=== PATIENT | male | born 1935 | race Caucasian/White ===

== ENCOUNTER 2017-08-07 06:24 | Emergency (ER) | payer OTHER ==
[~2017-08-07] VITALS: Ht 182.9 cm; Wt 90.7 kg
[~2017-08-07 06:24] MED LIST: ASPI81CH PO; BISA5EC PO; HYDACE5 PO; Kristalose20 GM PO; LEVFLO500 PO; MAGCIT300 PO; Miralax17 GM PO; NAPR550 PO; PSEHYDGUAL PO; SIMV10 PO
[2017-08-07] MEDS ORDERED: Augmentin 875-1 EACH PO (07:46)
== END 2017-08-07 08:23 | disposition home or self-care (01) ==
LOC: ER 06:24
DX: S51.852A Open bite of left forearm, initial encounter (principal); Z23 Encounter for immunization; E78.00 Pure hypercholesterolemia, unspecified; Z79.82 Long term (current) use of aspirin; Z79.899 Other long term (current) drug therapy; W55.01XA Bitten by cat, initial encounter
CPT/HCPCS: 12001; 90471; 90714; 99283

== ENCOUNTER 2019-11-22 18:47 | Inpatient (IN) | payer OTHER ==
[~2019-11-22] VITALS: Ht 182.9 cm; Wt 86.0 kg
[~2019-11-22 18:47] MED LIST changes: +Augmentin 875-1 EACH PO
[2019-11-22 19:16] LABS: BASOPHILS ABSOLUTE AUTO 0.05 K/mm3 (0.00-0.23); BASOPHILS PERCENT AUTO 1 % (0-2); EOSINOPHILS ABSOLUTE AUTO 0.25 K/mm3 (0.00-0.68); EOSINOPHILS PERCENT AUTO 3 % (0-6); Hematocrit 44.5 % (37.0-53.0); Hemoglobin 14.2 g/dL (13.5-17.5); IMMATURE GRAN ABSOLUTE AUTO 0.02 K/mm3 (0.00-0.10); IMMATURE GRAN PERCENT AUTO 0 % (0-1); LYMPHOCYTES PERCENT AUTO 20 % (21-46); MONOCYTES ABSOLUTE AUTO 0.54 K/mm3 (0.16-1.47); MONOCYTES PERCENT AUTO 6 % (4-13); Mean Corpuscular HGB 29.8 pg (26.0-34.0); Mean Corpuscular HGB Conc 31.9 g/dL (31.5-36.5); Mean Corpuscular Volume 94 fL (80-100); Mean Platelet Volume 10.3 fL (9.1-12.4); NEUTROPHILS ABSOLUTE AUTO 5.84 K/mm3 (1.96-9.15); NEUTROPHILS PERCENT AUTO 70 % (41-73); Platelet Count 219 K/mm3 (150-400); RDW Coefficient Variation 12.2 % (11.7-14.2); RDW Standard Deviation 42.4 fL (35.1-46.3); Red Blood Cell Count 4.76 M/mm3 (4.30-5.90)
[2019-11-22 19:43] LABS: Alanine Aminotransfer (ALT/SGP 28 U/L (12-78); Albumin, Blood 3.6 g/dL (3.4-5.0); Albumin/Globulin Ratio 1.1 (0.8-1.8); Alk Phos 82 U/L (50-136); Anion Gap 4 mmol/L (6-16); Aspartate Aminotrans (AST/SGOT 20 U/L (12-37); Bilirubin, Total 0.6 mg/dL (0.1-1.0); Blood Urea Nitrogen 23 mg/dL (8-24); Bun/Creatinine Ratio 18.3 (12.0-20.0); CO2, Blood 27 mmol/L (21-32); Calcium, Blood 8.9 mg/dL (8.5-10.1); Chloride, Blood 112 mmol/L (98-108); Creatinine, Blood 1.26 mg/dL (0.60-1.20); Globulin, Blood 3.4 g/dL (2.2-4.0); Glomerular Filtration Rate 58 (60-); Glucose, Blood 127 mg/dL (70-99); Sodium, Blood 143 mmol/L (136-145); Troponin I <0.015 ng/mL (0.000-0.040)
[2019-11-23] LABS: Lactate Dehydrogenase (Ld),Bld 243 U/L (100-240)
[2019-11-23 00:12] LABS: Automated BF WBC Count 0.062 K/mm3 (0-999); Body Fluid WBC Count 62 /mm3 (0-999)
[2019-11-23 00:17] LABS: Amylase, Body Fluid 35 U/L; Lactate Dehydrogenase, Body Fl 129 U/L; Protein, Body Fluid 3.9 g/dL
[2019-11-23 00:30] LABS: Appearance, Body Fluid Clear (Clear); Color, Body Fluid Yellow (None-Yellow); RBC Count, Body Fluid 1184 /mm3 (0-0)
[2019-11-23 00:35] LABS: Total Cell Count, Body Fluid 100
[2019-11-23] MEDS ORDERED: METO50ER PO (01:35)
[2019-11-23] MEDS ORDERED: Flecainide Acet50 MG PO (01:36)
--- NOTE | 2019-11-23 05:15 | NUR ---
WHITE WASHER PILER SUMMARY PT HAS HAD NO C/P OF SOB DURING THE NIGHT. PT O2 SATURATIONS IN THE LOW 90'S ON ROOM AIR W CONTINUOUS BI OX IN PLACE. 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 NO NEW S/S. AXO X4 PLEASANT AND COOPERATIVE.
[2019-11-23 05:36] LABS: BASOPHILS ABSOLUTE AUTO 0.05 K/mm3 (0.00-0.23); BASOPHILS PERCENT AUTO 0 % (0-2); EOSINOPHILS ABSOLUTE AUTO 0.09 K/mm3 (0.00-0.68); EOSINOPHILS PERCENT AUTO 1 % (0-6); Hematocrit 42.6 % (37.0-53.0); Hemoglobin 13.4 g/dL (13.5-17.5); IMMATURE GRAN ABSOLUTE AUTO 0.03 K/mm3 (0.00-0.10); IMMATURE GRAN PERCENT AUTO 0 % (0-1); LYMPHOCYTES ABSOLUTE AUTO 1.41 K/mm3 (0.84-5.20); LYMPHOCYTES PERCENT AUTO 12 % (21-46); MONOCYTES ABSOLUTE AUTO 0.69 K/mm3 (0.16-1.47); MONOCYTES PERCENT AUTO 6 % (4-13); Mean Corpuscular HGB 29.8 pg (26.0-34.0); Mean Corpuscular HGB Conc 31.5 g/dL (31.5-36.5); Mean Corpuscular Volume 95 fL (80-100); Mean Platelet Volume 10.5 fL (9.1-12.4); NEUTROPHILS ABSOLUTE AUTO 9.76 K/mm3 (1.96-9.15); NEUTROPHILS PERCENT AUTO 81 % (41-73); Platelet Count 204 K/mm3 (150-400); RDW Coefficient Variation 12.3 % (11.7-14.2); RDW Standard Deviation 42.9 fL (35.1-46.3); White Blood Cell Count 12.03 K/mm3 (4.00-11.30)
[2019-11-23 05:47] LABS: Anion Gap 3 mmol/L (6-16); Blood Urea Nitrogen 23 mg/dL (8-24); Bun/Creatinine Ratio 19.5 (12.0-20.0); CO2, Blood 28 mmol/L (21-32); Calcium, Blood 8.5 mg/dL (8.5-10.1); Chloride, Blood 110 mmol/L (98-108); Creatinine, Blood 1.18 mg/dL (0.60-1.20); Glomerular Filtration Rate >60 (60-); Glucose, Blood 99 mg/dL (70-99); Lactate Dehydrogenase (Ld),Bld 186 U/L (100-240); Potassium, Blood 4.5 mmol/L (3.5-5.5); Sodium, Blood 141 mmol/L (136-145)
--- NOTE | 2019-11-24 06:38 | NUR ---
11/24/19 0600 PT SLEPT WELL LAST NIGHT. DENIED ANY DISCOMFORT OR OTHER S/S. VITALS STABLE. UP TO VOID PRN. RN ENCOURAGED ORAL INTAKE BUT PT ONLY WOULD TAKE SIPS AT A TIME. PT ON ROOM AIR AND DENIES ANY SOB THIS SHIFT.
[2019-11-24 08:25] LABS: BASOPHILS ABSOLUTE AUTO 0.06 K/mm3 (0.00-0.23); BASOPHILS PERCENT AUTO 1 % (0-2); EOSINOPHILS ABSOLUTE AUTO 0.28 K/mm3 (0.00-0.68); EOSINOPHILS PERCENT AUTO 4 % (0-6); Hematocrit 41.4 % (37.0-53.0); Hemoglobin 13.2 g/dL (13.5-17.5); IMMATURE GRAN ABSOLUTE AUTO 0.02 K/mm3 (0.00-0.10); IMMATURE GRAN PERCENT AUTO 0 % (0-1); LYMPHOCYTES ABSOLUTE AUTO 1.25 K/mm3 (0.84-5.20); LYMPHOCYTES PERCENT AUTO 16 % (21-46); MONOCYTES PERCENT AUTO 8 % (4-13); Mean Corpuscular HGB 30.1 pg (26.0-34.0); Mean Corpuscular HGB Conc 31.9 g/dL (31.5-36.5); Mean Corpuscular Volume 94 fL (80-100); Mean Platelet Volume 10.7 fL (9.1-12.4); NEUTROPHILS ABSOLUTE AUTO 5.77 K/mm3 (1.96-9.15); NEUTROPHILS PERCENT AUTO 72 % (41-73); Platelet Count 179 K/mm3 (150-400); RDW Coefficient Variation 12.3 % (11.7-14.2); RDW Standard Deviation 42.8 fL (35.1-46.3); Red Blood Cell Count 4.39 M/mm3 (4.30-5.90); White Blood Cell Count 7.98 K/mm3 (4.00-11.30)
--- NOTE | 2019-11-24 13:21 | NUR ---
Echocardiogram performed.
--- NOTE | 2019-11-24 17:58 | NUR ---
SHIFT SUMMARY ECHOCARDIOGRAM COMPLETED, CONTINUOS SPO2 IN PLACE. NO EPISODES OF DESATURATION. PATIENT WALKED ENTIRETY OF UNIT X2. NO COMPLAINTS. PER PULMONOGY, NOT ANTICIPATING A NEED FOR SECOND THORACENTESIS. CULTURES PENDING.
--- NOTE | 2019-11-25 00:47 | NUR ---
RECEIVED REPORT FROM JONATAN WALDROP. ASSUMED CARE OF PT.
--- NOTE | 2019-11-25 02:01 | NUR ---
SALINE LOCKED PT. PT UP TO BR INDEPENDENTLY. NO OTHER NEEDS. CALL LT IN REACH.
--- NOTE | 2019-11-25 04:24 | NUR ---
SHIFT SUMMARY: PT RESTED WELL. NO COMPLAINTS. AMBULATES INDEPENDENTLY. A/O. ABLE TO STATE NEEDS APPROPRIATELY. NO ACUTE CHANGES. POSSIBLE DISCHARGE TODAY. WILL CONTINUE TO MONITOR AND PROVIDE CARE UNTIL SHIFT REPORT.
--- NOTE | 2019-11-25 12:46 | NUR ---
DISCHARGE VERBALIZED UNDERSTANDIG OF THE DISCHARGE INSTRUCTIONS, MEDICATIONS AND FOLLOW-UPS, AND ALL QUESTIONS ANSWERED. SON, YAJAIRA, PRESENT FOR DISCHARGE EDUCATION. PATIENT WAS FREE OF S/SX OF RESPIRATORY DISTRESS, HEART MURMUR STILL PRESENT. SATURATIONS >90% ON RA, NO COUGH. LUNG SOUNDS DIMINISHED IN THE BASES, BUT PT HAD NO RESPIRATORY COMPLAINTS. PATIENT HAD ALL OF PERSONAL BELONGINGS IN HIS POSESSION AT TIME OF DISCHARGE. RX'S SENT TO [facility], PER PATIENT REQUEST.
== END 2019-11-25 11:52 | disposition home or self-care (01) | DRG 306 ==
LOC: ER 18:47 → MEDS 11-23 00:34 → ENPENDDIS 11-25 09:58 → MEDS 11-25 11:52
PROVIDERS: Emergency Medicine; Family Medicine; Nurse Practitioner Acute Care; Physician Assistant; ADMIT Internal Medicine
PROC: 0W9930Z Drainage of Right Pleural Cavity with Drainage Device, Percutaneous Approach (ICD-10-PCS; principal; 2019-11-23)
PROC: 3E02340 Introduction of Influenza Vaccine into Muscle, Percutaneous Approach (ICD-10-PCS; 2019-11-23)
DX: I34.0 Nonrheumatic mitral (valve) insufficiency (principal); J96.01 Acute respiratory failure with hypoxia; J91.8 Pleural effusion in other conditions classified elsewhere; N17.9 Acute kidney failure, unspecified; I47.1 Supraventricular tachycardia; Z20.828 Contact with and (suspected) exposure to other viral communicable diseases; J40 Bronchitis, not specified as acute or chronic; E78.00 Pure hypercholesterolemia, unspecified; D64.9 Anemia, unspecified; H91.90 Unspecified hearing loss, unspecified ear; Z77.090 Contact with and (suspected) exposure to asbestos; Z77.22 Contact with and (suspected) exposure to environmental tobacco smoke (acute) (chronic); Z23 Encounter for immunization; Z85.46 Personal history of malignant neoplasm of prostate; Z79.899 Other long term (current) drug therapy; Z79.82 Long term (current) use of aspirin
CPT/HCPCS: 32554; 36415; 71046; 71260; 74160; 80048; 80053; 82150; 82947; 83615; 83880; 84145; 84157; 84484; 85025; 87070; 87205; 88108; 89051; 93005; 93010; 93306; 99285-25; A9270-GY; J0696; J1650; J7030; J7050; Q2038; Q9967; U0003

== ENCOUNTER 2019-12-07 07:37 | Emergency (ER) | payer OTHER ==
[~2019-12-07] VITALS: Ht 182.9 cm; Wt 88.5 kg
[~2019-12-07 07:37] MED LIST changes: +Flecainide Acet50 MG PO; +METO50ER PO
[2019-12-07 09:24] LABS: BASOPHILS ABSOLUTE AUTO 0.06 K/mm3 (0.00-0.23); BASOPHILS PERCENT AUTO 1 % (0-2); EOSINOPHILS ABSOLUTE AUTO 0.17 K/mm3 (0.00-0.68); EOSINOPHILS PERCENT AUTO 2 % (0-6); Hematocrit 40.2 % (37.0-53.0); Hemoglobin 12.9 g/dL (13.5-17.5); IMMATURE GRAN ABSOLUTE AUTO 0.02 K/mm3 (0.00-0.10); IMMATURE GRAN PERCENT AUTO 0 % (0-1); LYMPHOCYTES ABSOLUTE AUTO 0.94 K/mm3 (0.84-5.20); LYMPHOCYTES PERCENT AUTO 12 % (21-46); MONOCYTES ABSOLUTE AUTO 0.41 K/mm3 (0.16-1.47); MONOCYTES PERCENT AUTO 5 % (4-13); Mean Corpuscular HGB 30.1 pg (26.0-34.0); Mean Corpuscular HGB Conc 32.1 g/dL (31.5-36.5); Mean Corpuscular Volume 94 fL (80-100); Mean Platelet Volume 9.8 fL (9.1-12.4); NEUTROPHILS ABSOLUTE AUTO 6.18 K/mm3 (1.96-9.15); NEUTROPHILS PERCENT AUTO 79 % (41-73); Platelet Count 231 K/mm3 (150-400); RDW Coefficient Variation 12.2 % (11.7-14.2); RDW Standard Deviation 41.7 fL (35.1-46.3); Red Blood Cell Count 4.29 M/mm3 (4.30-5.90); White Blood Cell Count 7.78 K/mm3 (4.00-11.30)
[2019-12-07 09:39] LABS: International Normalized Ratio 0.99; Prothrombin Time Results 10.6 Sec (9.7-11.5)
== END 2019-12-07 10:00 | disposition home or self-care (01) ==
LOC: ER 07:37
PROVIDERS: Emergency Medicine
DX: J90 Pleural effusion, not elsewhere classified (principal); I34.0 Nonrheumatic mitral (valve) insufficiency; E78.00 Pure hypercholesterolemia, unspecified; Z79.899 Other long term (current) drug therapy
CPT/HCPCS: 36415; 71045; 85025; 85610; 85730; 99283-25

== ENCOUNTER 2019-12-11 00:47 | Observation (INO) | payer OTHER ==
[~2019-12-11] VITALS: Ht 182.9 cm; Wt 88.7 kg
[~2019-12-11 00:47] MED LIST changes: -SIMV10 PO; +SIMV40 PO
[2019-12-11 02:57] LABS: BASOPHILS ABSOLUTE AUTO 0.07 K/mm3 (0.00-0.23); BASOPHILS PERCENT AUTO 1 % (0-2); EOSINOPHILS ABSOLUTE AUTO 0.32 K/mm3 (0.00-0.68); EOSINOPHILS PERCENT AUTO 4 % (0-6); Hematocrit 39.7 % (37.0-53.0); Hemoglobin 12.6 g/dL (13.5-17.5); IMMATURE GRAN ABSOLUTE AUTO 0.02 K/mm3 (0.00-0.10); IMMATURE GRAN PERCENT AUTO 0 % (0-1); LYMPHOCYTES ABSOLUTE AUTO 1.04 K/mm3 (0.84-5.20); LYMPHOCYTES PERCENT AUTO 14 % (21-46); MONOCYTES ABSOLUTE AUTO 0.51 K/mm3 (0.16-1.47); MONOCYTES PERCENT AUTO 7 % (4-13); Mean Corpuscular HGB 29.8 pg (26.0-34.0); Mean Corpuscular HGB Conc 31.7 g/dL (31.5-36.5); Mean Corpuscular Volume 94 fL (80-100); Mean Platelet Volume 10.1 fL (9.1-12.4); NEUTROPHILS ABSOLUTE AUTO 5.56 K/mm3 (1.96-9.15); NEUTROPHILS PERCENT AUTO 74 % (41-73); Platelet Count 245 K/mm3 (150-400); RDW Coefficient Variation 12.2 % (11.7-14.2); RDW Standard Deviation 42.5 fL (35.1-46.3); Red Blood Cell Count 4.23 M/mm3 (4.30-5.90); White Blood Cell Count 7.52 K/mm3 (4.00-11.30)
[2019-12-11 03:12] LABS: International Normalized Ratio 0.96; Prothrombin Time Results 10.3 Sec (9.7-11.5)
[2019-12-11 03:15] LABS: Alanine Aminotransfer (ALT/SGP 16 U/L (12-78); Albumin/Globulin Ratio 0.9 (0.8-1.8); Alk Phos 86 U/L (50-136); Anion Gap 6 mmol/L (6-16); Aspartate Aminotrans (AST/SGOT 10 U/L (12-37); Bilirubin, Total 0.3 mg/dL (0.1-1.0); Blood Urea Nitrogen 23 mg/dL (8-24); Bun/Creatinine Ratio 19.2 (12.0-20.0); CO2, Blood 26 mmol/L (21-32); Calcium, Blood 8.2 mg/dL (8.5-10.1); Chloride, Blood 109 mmol/L (98-108); Globulin, Blood 3.2 g/dL (2.2-4.0); Glomerular Filtration Rate >60 (60-); Glucose, Blood 117 mg/dL (70-99); Sodium, Blood 141 mmol/L (136-145); Total Protein, Blood 6.2 g/dL (6.4-8.2); Troponin I <0.015 ng/mL (0.000-0.040)
[2019-12-11] MEDS ORDERED: Flecainide Acet50 MG PO (03:42)
--- NOTE | 2019-12-11 04:34 | NUR ---
PT ARRIVED TO THE ROOM FROM ER VIA WHEELCHAIR IN STABLE CONDITION. PT REPORTS SOB THAT INCREASES WITH EXERTION, BUT STATES IT IS A LITTLE BETTER NOW THAN WHEN HE FIRST CAME IN TO THE ER. ON RA AT 93%. NO OTHER APPARENT SIGNS OF DISTRESS. CALL LIGHT IS IN REACH.
--- NOTE | 2019-12-11 05:25 | NUR ---
PT LYING IN BED, EYES CLOSED, APPEARS TO BE RESTING. BREATHING IS EVEN, UNLABORED. NO APPARENT SIGNS OF DISTRESS. CALL LIGHT IS IN REACH.NO OTHER CHANGES THIS SHIFT.
[2019-12-11 05:33] LABS: BASOPHILS ABSOLUTE AUTO 0.07 K/mm3 (0.00-0.23); BASOPHILS PERCENT AUTO 1 % (0-2); EOSINOPHILS ABSOLUTE AUTO 0.37 K/mm3 (0.00-0.68); EOSINOPHILS PERCENT AUTO 5 % (0-6); Hematocrit 40.6 % (37.0-53.0); Hemoglobin 12.7 g/dL (13.5-17.5); IMMATURE GRAN ABSOLUTE AUTO 0.02 K/mm3 (0.00-0.10); IMMATURE GRAN PERCENT AUTO 0 % (0-1); LYMPHOCYTES ABSOLUTE AUTO 1.32 K/mm3 (0.84-5.20); LYMPHOCYTES PERCENT AUTO 16 % (21-46); MONOCYTES ABSOLUTE AUTO 0.54 K/mm3 (0.16-1.47); MONOCYTES PERCENT AUTO 7 % (4-13); Mean Corpuscular HGB 29.5 pg (26.0-34.0); Mean Corpuscular HGB Conc 31.3 g/dL (31.5-36.5); Mean Corpuscular Volume 94 fL (80-100); Mean Platelet Volume 10.2 fL (9.1-12.4); NEUTROPHILS PERCENT AUTO 72 % (41-73); Platelet Count 248 K/mm3 (150-400); RDW Coefficient Variation 12.4 % (11.7-14.2); RDW Standard Deviation 42.7 fL (35.1-46.3); White Blood Cell Count 8.22 K/mm3 (4.00-11.30)
[2019-12-11 05:54] LABS: Alanine Aminotransfer (ALT/SGP 17 U/L (12-78); Albumin, Blood 3.1 g/dL (3.4-5.0); Albumin/Globulin Ratio 0.9 (0.8-1.8); Alk Phos 91 U/L (50-136); Anion Gap 5 mmol/L (6-16); Aspartate Aminotrans (AST/SGOT 13 U/L (12-37); Bilirubin, Total 0.5 mg/dL (0.1-1.0); Blood Urea Nitrogen 22 mg/dL (8-24); Bun/Creatinine Ratio 18.6 (12.0-20.0); CO2, Blood 26 mmol/L (21-32); Calcium, Blood 8.2 mg/dL (8.5-10.1); Chloride, Blood 108 mmol/L (98-108); Creatinine, Blood 1.18 mg/dL (0.60-1.20); Globulin, Blood 3.3 g/dL (2.2-4.0); Glomerular Filtration Rate >60 (60-); Glucose, Blood 114 mg/dL (70-99); Sodium, Blood 139 mmol/L (136-145); Total Protein, Blood 6.4 g/dL (6.4-8.2)
--- NOTE | 2019-12-11 16:41 | NUR ---
ALERT. ORIENTED. PLEASANT. RT MIDDLE AND LOWER LOBES LUNG WITH VERY DIM SOUNDS. UNLABORED RESPIRATIONS. TELE ON AND PER TECH HAS BEEN SR IN 60'S. HAS BEEN INDEPENDENT IN ROOM, STEADY GAIT. RADIOLOGY UNABLE TO GET PATIENT IN TODAY FOR THORACENTESIS. RELATIVES VISITING MOST OF SHIFT. WCTM
[2019-12-12 11:44] LABS: Albumin, Body Fluid 2.1 g/dL; Automated BF WBC Count 0.093 K/mm3 (0-999); Body Fluid WBC Count 93 /mm3 (0-999); Lactate Dehydrogenase, Body Fl 178 U/L; Protein, Body Fluid 3.4 g/dL; Triglycerides, Body Fluid 13 mg/dL
[2019-12-12 12:20] LABS: RBC Count, Body Fluid 620 /mm3 (0-0)
[2019-12-12 12:21] LABS: Appearance, Body Fluid Clear (Clear); Color, Body Fluid Yellow (None-Yellow)
[2019-12-12 12:24] LABS: Total Cell Count, Body Fluid 100
[2019-12-12] MEDS ORDERED: FURO20 PO (14:43)
--- NOTE | 2019-12-12 15:11 | NUR ---
Pt sitting in chair awaiting to be D/C from hospital. Pt is A&O and denies pain at this time. Pt denies dyspnea and anxiety. Pt reports breathing has significantly improved since thoracentesis. Engaged in brief discussion regarding advanced directives. 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 Educated on the importance of completing an AD and appointing a healthcare hobbies and crafts sales representative. Educated on each section to complete. Pt reports he will consider completing if one has not be completing already. Pt expresses appreciation of visit and reports no other concerns at this time. Bedside RN Brittney in to D/C Pt. Palliative Care will remain available.
--- NOTE | 2019-12-12 17:25 | NUR ---
DISCHARGE DISCHARGE INSTRUCTIONS, FOLLOW UP APPOINTMENTS AND MEDICATION LIST REVIEWED WITH PT. QUESTIONS/CONCERNS ANSWERED. PT VERBALLY INDICATED UNDERSTANDING OF ALL INSTRUCTIONS RECEIVED DISCHARGED VIA W/C WITH D/C VOLUNTEER
== END 2019-12-12 15:17 | disposition home or self-care (01) ==
LOC: ER 00:47 → MEDS 00:48 → ER 03:49 → MEDS 03:55 → ENPENDDIS 16:51 → MEDS 12-12 15:17
PROVIDERS: Emergency Medicine; ADMIT Internal Medicine
DX: J90 Pleural effusion, not elsewhere classified (principal); I34.0 Nonrheumatic mitral (valve) insufficiency; I12.9 Hypertensive chronic kidney disease with stage 1 through stage 4 chronic kidney disease, or unspecified chronic kidney disease; N18.30 Chronic kidney disease, stage 3 unspecified; E78.5 Hyperlipidemia, unspecified; I48.0 Paroxysmal atrial fibrillation; Z79.899 Other long term (current) drug therapy; Z85.46 Personal history of malignant neoplasm of prostate; Z20.828 Contact with and (suspected) exposure to other viral communicable diseases; Z23 Encounter for immunization
CPT/HCPCS: 32555; 36415; 71045; 71046; 80053; 82042; 83615; 83880; 84157; 84478; 84484; 85025; 85610; 85730; 87205; 88108; 89051; 93005; 93010; 99285-25; G0378; U0003

== ENCOUNTER 2019-12-13 06:03 | Day surgery (SDC) | payer OTHER ==
[~2019-12-13] VITALS: Ht 182.9 cm; Wt 87.0 kg
[~2019-12-13 06:03] MED LIST changes: +FURO20 PO
--- NOTE | 2019-12-13 07:43 | NUR ---
PT RESTING COMFORTABLY AFTER LELE PROCEDURE. DENIES NEEDS. VSS. PT TOLERATES PROCEDURE WELL. NADN. DR RODRIGUEZ SPOKE WITH PATIENTS SONYAJAIRA ON PHONE REGARDING PLAN OF CARE. CALL LIGHT WITHIN REACH.
--- NOTE | 2019-12-13 08:10 | NUR ---
PT GIVEN ADDITIONAL WARM BLANKET. REMAINS DROWSY, BUT ROUSES EASILY TO VERBAL STIMULI. VSS.
== END 2019-12-13 22:56 | disposition home or self-care (01) ==
LOC: MHTC 06:03
DX: I34.0 Nonrheumatic mitral (valve) insufficiency (principal); I48.0 Paroxysmal atrial fibrillation; E78.5 Hyperlipidemia, unspecified; Z79.899 Other long term (current) drug therapy; Z85.46 Personal history of malignant neoplasm of prostate; Z23 Encounter for immunization; Z51.5 Encounter for palliative care
CPT/HCPCS: 93312; 93325; 99152; 99153; J2250; J3010; J7030

== ENCOUNTER 2019-12-27 09:36 | Emergency (ER) | payer OTHER ==
[~2019-12-27] VITALS: Ht 185.4 cm; Wt 86.2 kg
[2019-12-27 10:10] LABS: BASOPHILS ABSOLUTE AUTO 0.06 K/mm3 (0.00-0.23); BASOPHILS PERCENT AUTO 1 % (0-2); EOSINOPHILS ABSOLUTE AUTO 0.26 K/mm3 (0.00-0.68); EOSINOPHILS PERCENT AUTO 3 % (0-6); Hematocrit 43.8 % (37.0-53.0); IMMATURE GRAN ABSOLUTE AUTO 0.03 K/mm3 (0.00-0.10); IMMATURE GRAN PERCENT AUTO 0 % (0-1); LYMPHOCYTES ABSOLUTE AUTO 1.62 K/mm3 (0.84-5.20); LYMPHOCYTES PERCENT AUTO 18 % (21-46); MONOCYTES ABSOLUTE AUTO 0.57 K/mm3 (0.16-1.47); MONOCYTES PERCENT AUTO 6 % (4-13); Mean Corpuscular Volume 94 fL (80-100); Mean Platelet Volume 10.1 fL (9.1-12.4); NEUTROPHILS ABSOLUTE AUTO 6.36 K/mm3 (1.96-9.15); NEUTROPHILS PERCENT AUTO 72 % (41-73); Platelet Count 247 K/mm3 (150-400); RDW Coefficient Variation 12.3 % (11.7-14.2); RDW Standard Deviation 42.5 fL (35.1-46.3); Red Blood Cell Count 4.66 M/mm3 (4.30-5.90)
[2019-12-27 10:27] LABS: Alanine Aminotransfer (ALT/SGP 13 U/L (12-78); Albumin, Blood 3.6 g/dL (3.4-5.0); Alk Phos 79 U/L (50-136); Anion Gap 5 mmol/L (6-16); Aspartate Aminotrans (AST/SGOT 15 U/L (12-37); Bilirubin, Total 0.7 mg/dL (0.1-1.0); Blood Urea Nitrogen 27 mg/dL (8-24); Bun/Creatinine Ratio 21.4 (12.0-20.0); CO2, Blood 28 mmol/L (21-32); Calcium, Blood 8.7 mg/dL (8.5-10.1); Chloride, Blood 108 mmol/L (98-108); Creatinine, Blood 1.26 mg/dL (0.60-1.20); Globulin, Blood 3.5 g/dL (2.2-4.0); Glomerular Filtration Rate 58 (60-); Glucose, Blood 103 mg/dL (70-99); Potassium, Blood 4.1 mmol/L (3.5-5.5); Sodium, Blood 141 mmol/L (136-145); Total Protein, Blood 7.1 g/dL (6.4-8.2); Troponin I <0.015 ng/mL (0.000-0.040)
[2019-12-27 11:14] LABS: International Normalized Ratio 0.98; Prothrombin Time Results 10.5 Sec (9.7-11.5)
[2019-12-27] MEDS ORDERED: FUROSEMIDE20 MG PO (12:02)
== END 2019-12-27 15:50 | disposition home or self-care (01) ==
LOC: ER 09:36
PROVIDERS: Emergency Medicine
DX: J90 Pleural effusion, not elsewhere classified (principal); E78.00 Pure hypercholesterolemia, unspecified; Z20.828 Contact with and (suspected) exposure to other viral communicable diseases; Z48.813 Encounter for surgical aftercare following surgery on the respiratory system; Z79.899 Other long term (current) drug therapy
CPT/HCPCS: 32555; 36415; 71045; 71046; 80053; 83880; 84484; 85025; 85610; 85730; 93005; 93010; 99285-25; U0004

== ENCOUNTER 2019-12-30 08:34 | Day surgery (SDC) | payer OTHER ==
[~2019-12-30] VITALS: Wt 89.5 kg
[~2019-12-30 08:34] MED LIST changes: +FUROSEMIDE20 MG PO
--- NOTE | 2019-12-30 11:32 | NUR ---
PATIENT RETURNED TO RECOVERY ROOM. A@O REPORT FROM RIVKA CHEUNG. RIGHT RADIAL SITE SOFT AND NONTENDER. WRIST BOARD IN PLACE. RIGHT BRACHIAL SITE SOFT AND NON TENDER ARM BOARD IN PLACE. BLOODY SPOT ON DRESSING MARKED.
--- NOTE | 2019-12-30 14:00 | NUR ---
patient instructed on post radial artery care and precausions. Tr band removed and cloth dot dressing applied. Site soft and nontender. no bruising, no swelling. Dressing in tact to right brachial vein site. blood spot unchanged from return to recovery room. instruction given for medications. Yumiko Mccann's office called to make an marylier f/u appointment per patients concern. Patient will now see Yumiko on 01/02/20 @ 08:15. patient A&O. discharged in the care of his son Maximo. patient taken to car by Kasey CHEUNG.
== END 2019-12-30 13:35 | disposition home or self-care (01) ==
LOC: MHTC 08:34
PROC: B2111ZZ Fluoroscopy of Multiple Coronary Arteries using Low Osmolar Contrast (ICD-10-PCS; principal; 2019-12-30)
PROC: 4A023N8 Measurement of Cardiac Sampling and Pressure, Bilateral, Percutaneous Approach (ICD-10-PCS; principal; 2019-12-30)
DX: I34.0 Nonrheumatic mitral (valve) insufficiency (principal); I48.0 Paroxysmal atrial fibrillation; I10 Essential (primary) hypertension; E78.5 Hyperlipidemia, unspecified; I42.9 Cardiomyopathy, unspecified; I25.10 Atherosclerotic heart disease of native coronary artery without angina pectoris; Z79.899 Other long term (current) drug therapy; Z85.46 Personal history of malignant neoplasm of prostate; Z51.5 Encounter for palliative care
CPT/HCPCS: 85347; 93456; 99152; C1769; C1894; J1644; J2250; J3010; J7030; J7050; Q9967

== ENCOUNTER 2020-01-20 07:37 | Emergency (ER) | payer OTHER ==
[~2020-01-20] VITALS: Ht 188 cm; Wt 88.5 kg
[2020-01-20 08:39] LABS: BASOPHILS ABSOLUTE AUTO 0.06 K/mm3 (0.00-0.23); BASOPHILS PERCENT AUTO 1 % (0-2); EOSINOPHILS ABSOLUTE AUTO 0.22 K/mm3 (0.00-0.68); EOSINOPHILS PERCENT AUTO 3 % (0-6); Hematocrit 42.5 % (37.0-53.0); Hemoglobin 13.4 g/dL (13.5-17.5); IMMATURE GRAN ABSOLUTE AUTO 0.03 K/mm3 (0.00-0.10); IMMATURE GRAN PERCENT AUTO 0 % (0-1); LYMPHOCYTES ABSOLUTE AUTO 0.95 K/mm3 (0.84-5.20); LYMPHOCYTES PERCENT AUTO 12 % (21-46); MONOCYTES ABSOLUTE AUTO 0.46 K/mm3 (0.16-1.47); MONOCYTES PERCENT AUTO 6 % (4-13); Mean Corpuscular HGB 29.5 pg (26.0-34.0); Mean Corpuscular HGB Conc 31.5 g/dL (31.5-36.5); Mean Corpuscular Volume 94 fL (80-100); Mean Platelet Volume 10.1 fL (9.1-12.4); NEUTROPHILS ABSOLUTE AUTO 6.29 K/mm3 (1.96-9.15); NEUTROPHILS PERCENT AUTO 79 % (41-73); Platelet Count 240 K/mm3 (150-400); RDW Coefficient Variation 12.3 % (11.7-14.2); RDW Standard Deviation 42.6 fL (35.1-46.3); Red Blood Cell Count 4.54 M/mm3 (4.30-5.90); White Blood Cell Count 8.01 K/mm3 (4.00-11.30)
[2020-01-20 08:54] LABS: International Normalized Ratio 1.02; Prothrombin Time Results 10.9 Sec (9.7-11.5)
[2020-01-20 08:59] LABS: Bun/Creatinine Ratio 20.3 (12.0-20.0); Calcium, Blood 8.6 mg/dL (8.5-10.1); Creatinine, Blood 1.33 mg/dL (0.60-1.20); Potassium, Blood 3.7 mmol/L (3.5-5.5)
[2020-01-20 10:12] LABS: Influenza A, PCR Negative (NEGATIVE); Influenza B, PCR Negative (NEGATIVE); Resp Syncytial Virus, PCR Negative (NEGATIVE); SARS-Cov-2 (COVID-19) PCR, MMC Negative (NEGATIVE)
== END 2020-01-20 13:00 | disposition home or self-care (01) ==
LOC: ER 07:37
PROVIDERS: Emergency Medicine
DX: J90 Pleural effusion, not elsewhere classified (principal); I10 Essential (primary) hypertension; E78.5 Hyperlipidemia, unspecified; Z20.828 Contact with and (suspected) exposure to other viral communicable diseases; Z79.899 Other long term (current) drug therapy
CPT/HCPCS: 0241U; 32555; 36415; 71045; 71046; 80048; 85025; 85610; 96374-59; 99285-25; J1940

== ENCOUNTER 2020-02-19 11:10 | Emergency (ER) | payer OTHER ==
[~2020-02-19] VITALS: Ht 182.9 cm; Wt 88.5 kg
[2020-02-19 11:49] LABS: BASOPHILS ABSOLUTE AUTO 0.07 K/mm3 (0.00-0.23); BASOPHILS PERCENT AUTO 1 % (0-2); EOSINOPHILS ABSOLUTE AUTO 0.29 K/mm3 (0.00-0.68); EOSINOPHILS PERCENT AUTO 4 % (0-6); Hematocrit 41.6 % (37.0-53.0); Hemoglobin 12.8 g/dL (13.5-17.5); IMMATURE GRAN ABSOLUTE AUTO 0.05 K/mm3 (0.00-0.10); IMMATURE GRAN PERCENT AUTO 1 % (0-1); LYMPHOCYTES ABSOLUTE AUTO 1.58 K/mm3 (0.84-5.20); LYMPHOCYTES PERCENT AUTO 19 % (21-46); MONOCYTES ABSOLUTE AUTO 0.49 K/mm3 (0.16-1.47); MONOCYTES PERCENT AUTO 6 % (4-13); Mean Corpuscular HGB Conc 30.8 g/dL (31.5-36.5); Mean Corpuscular Volume 94 fL (80-100); Mean Platelet Volume 9.9 fL (9.1-12.4); NEUTROPHILS ABSOLUTE AUTO 5.78 K/mm3 (1.96-9.15); NEUTROPHILS PERCENT AUTO 70 % (41-73); Platelet Count 235 K/mm3 (150-400); RDW Coefficient Variation 12.7 % (11.7-14.2); Red Blood Cell Count 4.42 M/mm3 (4.30-5.90); White Blood Cell Count 8.26 K/mm3 (4.00-11.30)
[2020-02-19 12:04] LABS: International Normalized Ratio 0.95; Prothrombin Time Results 10.2 Sec (9.7-11.5)
[2020-02-19 12:44] LABS: Influenza A, PCR Negative (NEGATIVE); Influenza B, PCR Negative (NEGATIVE); Resp Syncytial Virus, PCR Negative (NEGATIVE); SARS-Cov-2 (COVID-19) PCR, MMC Negative (NEGATIVE)
[2020-02-19 13:38] LABS: Alanine Aminotransfer (ALT/SGP 15 U/L (12-78); Albumin, Blood 3.3 g/dL (3.4-5.0); Albumin/Globulin Ratio 0.9 (0.8-1.8); Alk Phos 97 U/L (50-136); Anion Gap 6 mmol/L (6-16); Aspartate Aminotrans (AST/SGOT 13 U/L (12-37); Bilirubin, Total 0.7 mg/dL (0.1-1.0); Blood Urea Nitrogen 19 mg/dL (8-24); Bun/Creatinine Ratio 15.6 (12.0-20.0); CO2, Blood 27 mmol/L (21-32); Calcium, Blood 8.5 mg/dL (8.5-10.1); Chloride, Blood 108 mmol/L (98-108); Creatinine, Blood 1.22 mg/dL (0.60-1.20); Globulin, Blood 3.7 g/dL (2.2-4.0); Glomerular Filtration Rate >60 (60-); Glucose, Blood 129 mg/dL (70-99); Potassium, Blood 3.7 mmol/L (3.5-5.5); Sodium, Blood 141 mmol/L (136-145)
== END 2020-02-19 18:15 | disposition home or self-care (01) ==
LOC: ER 11:10
PROVIDERS: Emergency Medicine
DX: J90 Pleural effusion, not elsewhere classified (principal); Z98.890 Other specified postprocedural states; Z86.79 Personal history of other diseases of the circulatory system; E78.5 Hyperlipidemia, unspecified; I10 Essential (primary) hypertension; Z20.828 Contact with and (suspected) exposure to other viral communicable diseases; Z79.899 Other long term (current) drug therapy
CPT/HCPCS: 0241U; 32555; 36415; 71045; 80053; 83690; 83880; 85025; 85610; 93005; 93010; 99284-25

== ENCOUNTER 2020-03-02 08:14 | Emergency (ER) | payer OTHER ==
[~2020-03-02] VITALS: Ht 185.4 cm; Wt 79.4 kg
[2020-03-02 09:09] LABS: BASOPHILS ABSOLUTE AUTO 0.05 K/mm3 (0.00-0.23); BASOPHILS PERCENT AUTO 1 % (0-2); EOSINOPHILS ABSOLUTE AUTO 0.22 K/mm3 (0.00-0.68); EOSINOPHILS PERCENT AUTO 3 % (0-6); Hematocrit 39.5 % (37.0-53.0); Hemoglobin 12.5 g/dL (13.5-17.5); IMMATURE GRAN ABSOLUTE AUTO 0.02 K/mm3 (0.00-0.10); IMMATURE GRAN PERCENT AUTO 0 % (0-1); LYMPHOCYTES ABSOLUTE AUTO 1.24 K/mm3 (0.84-5.20); LYMPHOCYTES PERCENT AUTO 16 % (21-46); MONOCYTES ABSOLUTE AUTO 0.59 K/mm3 (0.16-1.47); MONOCYTES PERCENT AUTO 8 % (4-13); Mean Corpuscular HGB 29.6 pg (26.0-34.0); Mean Corpuscular HGB Conc 31.6 g/dL (31.5-36.5); Mean Corpuscular Volume 93 fL (80-100); Mean Platelet Volume 10.1 fL (9.1-12.4); NEUTROPHILS PERCENT AUTO 73 % (41-73); Platelet Count 213 K/mm3 (150-400); RDW Coefficient Variation 12.8 % (11.7-14.2); RDW Standard Deviation 43.6 fL (35.1-46.3); Red Blood Cell Count 4.23 M/mm3 (4.30-5.90); White Blood Cell Count 7.72 K/mm3 (4.00-11.30)
[2020-03-02 09:23] LABS: International Normalized Ratio 0.99; Prothrombin Time Results 10.6 Sec (9.7-11.5)
[2020-03-02 09:26] LABS: Calcium, Blood 8.5 mg/dL (8.5-10.1); Creatinine, Blood 1.27 mg/dL (0.60-1.20); Potassium, Blood 3.6 mmol/L (3.5-5.5)
[2020-03-02 09:53] LABS: Influenza A, PCR Negative (NEGATIVE); Influenza B, PCR Negative (NEGATIVE); Resp Syncytial Virus, PCR Negative (NEGATIVE); SARS-Cov-2 (COVID-19) PCR, MMC Negative (NEGATIVE)
[2020-06-10] MEDS ORDERED: OXYC5 PO (16:36)
[2020-06-15] MEDS ORDERED: MELA3 PO (06:25)
== END 2020-03-02 13:10 | disposition home or self-care (01) ==
LOC: ER 08:14
PROVIDERS: Physician Assistant
DX: J90 Pleural effusion, not elsewhere classified (principal); I10 Essential (primary) hypertension; E78.00 Pure hypercholesterolemia, unspecified; Z79.899 Other long term (current) drug therapy; Z20.822 Contact with and (suspected) exposure to COVID-19
CPT/HCPCS: 0241U; 32555; 36415; 71045; 71046; 80048; 85025; 85610; 85730; 99285-25

== ENCOUNTER 2020-03-12 09:35 | Day surgery (SDC) | payer OTHER ==
[2020-03-13] MEDS ORDERED: LOW DOSE ASPIRI81 M1 PO (04:29)
[2020-06-10] MEDS ORDERED: OXYC5 PO (16:36)
[2020-06-15] MEDS ORDERED: MELA3 PO (06:25)
== END 2020-03-12 22:37 | disposition home or self-care (01) ==
LOC: US 09:35
DX: J90 Pleural effusion, not elsewhere classified (principal); J95.811 Postprocedural pneumothorax; Y83.8 Other surgical procedures as the cause of abnormal reaction of the patient, or of later complication, without mention of misadventure at the time of the procedure
CPT/HCPCS: 32555; 71045

== ENCOUNTER 2020-03-13 01:24 | Inpatient (IN) | payer OTHER ==
[~2020-03-13] VITALS: Ht 182.9 cm; Wt 78.9 kg
[2020-03-13 02:31] LABS: BASOPHILS ABSOLUTE AUTO 0.07 K/mm3 (0.00-0.23); BASOPHILS PERCENT AUTO 1 % (0-2); EOSINOPHILS ABSOLUTE AUTO 0.29 K/mm3 (0.00-0.68); EOSINOPHILS PERCENT AUTO 4 % (0-6); Hemoglobin 12.4 g/dL (13.5-17.5); IMMATURE GRAN ABSOLUTE AUTO 0.03 K/mm3 (0.00-0.10); IMMATURE GRAN PERCENT AUTO 0 % (0-1); LYMPHOCYTES ABSOLUTE AUTO 1.47 K/mm3 (0.84-5.20); LYMPHOCYTES PERCENT AUTO 18 % (21-46); MONOCYTES ABSOLUTE AUTO 0.61 K/mm3 (0.16-1.47); MONOCYTES PERCENT AUTO 7 % (4-13); Mean Corpuscular HGB 28.8 pg (26.0-34.0); Mean Corpuscular Volume 93 fL (80-100); NEUTROPHILS ABSOLUTE AUTO 5.76 K/mm3 (1.96-9.15); NEUTROPHILS PERCENT AUTO 70 % (41-73); Platelet Count 202 K/mm3 (150-400); RDW Coefficient Variation 12.5 % (11.7-14.2); RDW Standard Deviation 43.2 fL (35.1-46.3); White Blood Cell Count 8.23 K/mm3 (4.00-11.30)
[2020-03-13 02:51] LABS: Alanine Aminotransfer (ALT/SGP 13 U/L (12-78); Albumin/Globulin Ratio 0.9 (0.8-1.8); Alk Phos 94 U/L (50-136); Anion Gap 5 mmol/L (6-16); Aspartate Aminotrans (AST/SGOT 11 U/L (12-37); Bilirubin, Total 0.4 mg/dL (0.1-1.0); Blood Urea Nitrogen 25 mg/dL (8-24); Bun/Creatinine Ratio 16.9 (12.0-20.0); CO2, Blood 30 mmol/L (21-32); Chloride, Blood 105 mmol/L (98-108); Creatinine, Blood 1.48 mg/dL (0.60-1.20); Globulin, Blood 3.5 g/dL (2.2-4.0); Glomerular Filtration Rate 48 (60-); Glucose, Blood 108 mg/dL (70-99); Potassium, Blood 3.3 mmol/L (3.5-5.5); Sodium, Blood 140 mmol/L (136-145); Total Protein, Blood 6.5 g/dL (6.4-8.2); Troponin I <0.015 ng/mL (0.000-0.040)
[2020-03-13] MEDS ORDERED: LOW DOSE ASPIRI81 M1 PO (04:29)
--- NOTE | 2020-03-13 05:13 | NUR ---
SHIFT SUMMARY PT ARRIVED TO UNIT FROM ED VIA STRETCHER. PT TRANSFERRED STAND/PIVOT TO BED. PT IS A&O X4, SBA/IND. PT IS VERY [place], WITH HEARING AIDS LEFT AT HOME. PT ORIENTED TO ROOM AND CALL LIGHT. PT STATES NO NEEDS OR COMPLAINTS AT THIS TIME. PT IS LAYING IN BED, EVEN AND UNLABORED RESPIRATIONS. BED IN LOWERED POSITION WITH SIDE RAILS UP X2 FOR SAFETY, SCDs IN PLACE. CALL LIGHT AND PERSONAL ITEMS WITH IN REACH. NO APPARENT NEEDS OR DISTRESS AT THIS TIME, WILL CONTINUE TO MONITOR UNTIL REPORT GIVEN TO DAY RN.
--- NOTE | 2020-03-13 08:30 | NUR ---
PT PLEASANT COOP A/O X3. QUITE HABEMATOLEL, MUST ALMOST YELL TO HAVE HIM HEAR. STATES WILL BRING HEARING AIDES TO FLOOR TODAY. DENIES PAIN. DENIES SOB. H/R REG, NO MURMER NOTED. NO TELE. LUNGS ABSENT SOUNDS ON RT. LEFT CLEAR. RESP EASY, UNLABORED. ON R/A. 95% O2. BT X4 LAST BM YST. PER PT. VOIDS INDEPENDANT TO BATHROOM. DENIES SOB WHILE AMB. BED IN LOW POSITION, CALL LITE IN REACH, CALLS APPROP.
--- NOTE | 2020-03-13 12:53 | NUR ---
PT RETURNED TO ROOM. PT A/O TALKING STATES NO SOB. TUBE PLACED IN RT CHEST WALL. TUBE IN BAG TO CAPTURE ANY FLUID.
--- NOTE | 2020-03-13 13:45 | NUR ---
PT TO RADIOLOGY AT NOON. TUBE PLACED RT CHEST WALL. NO BLEEDING NOTED KUPON ARRIVAL TO ROOM. WAS TO BE GOING TO PCU. NO ROOM YET. CALLED DEICER INSPECTOR PNEUMATIC FOR REPORT . WILL TX WHEN PT RM CLEAN. CALLED [facility]. HE STATES WE TO PLACE PLEUROVAC TO STD SUCTION WHEN TX TO ROOM IN PCU. PT RESTING COMFORTABLY. SCANT S/S FLUID IN BAG.
--- NOTE | 2020-03-13 14:55 | NUR ---
PT TX TO PCU BY HIGH SCHOOL SOCIAL SCIENCE TEACHER AT 1400.
--- NOTE | 2020-03-13 17:24 | NUR ---
SHIFT NOTE PT IS RESTING WELL IN BED. CHEST TUBE TO SUCTION WITH MODERATE BUBBLING NOTED IN CHAMBER. NO DRAINAGE NOTED IN DRAINAGE CHAMBER. PT ALERT ANSWERING QUESTIONS APPROPRIATELY, HE IS VERY [place]. VSS. PERRL.
[2020-03-14 04:12] LABS: BASOPHILS ABSOLUTE AUTO 0.05 K/mm3 (0.00-0.23); BASOPHILS PERCENT AUTO 1 % (0-2); EOSINOPHILS ABSOLUTE AUTO 0.31 K/mm3 (0.00-0.68); EOSINOPHILS PERCENT AUTO 4 % (0-6); Hematocrit 40.6 % (37.0-53.0); Hemoglobin 12.5 g/dL (13.5-17.5); IMMATURE GRAN ABSOLUTE AUTO 0.04 K/mm3 (0.00-0.10); IMMATURE GRAN PERCENT AUTO 1 % (0-1); LYMPHOCYTES ABSOLUTE AUTO 1.65 K/mm3 (0.84-5.20); LYMPHOCYTES PERCENT AUTO 19 % (21-46); MONOCYTES ABSOLUTE AUTO 0.57 K/mm3 (0.16-1.47); MONOCYTES PERCENT AUTO 7 % (4-13); Mean Corpuscular HGB 28.6 pg (26.0-34.0); Mean Corpuscular HGB Conc 30.8 g/dL (31.5-36.5); Mean Corpuscular Volume 93 fL (80-100); Mean Platelet Volume 10.4 fL (9.1-12.4); NEUTROPHILS ABSOLUTE AUTO 5.87 K/mm3 (1.96-9.15); NEUTROPHILS PERCENT AUTO 69 % (41-73); Platelet Count 211 K/mm3 (150-400); RDW Coefficient Variation 12.5 % (11.7-14.2); RDW Standard Deviation 43.2 fL (35.1-46.3); Red Blood Cell Count 4.37 M/mm3 (4.30-5.90); White Blood Cell Count 8.49 K/mm3 (4.00-11.30)
[2020-03-14 04:37] LABS: Bun/Creatinine Ratio 17.7 (12.0-20.0); Calcium, Blood 8.5 mg/dL (8.5-10.1); Creatinine, Blood 1.3 mg/dL (0.60-1.20); Potassium, Blood 3.9 mmol/L (3.5-5.5)
--- NOTE | 2020-03-14 05:47 | NUR ---
SHIFT SUMMARY PT A&O X 4; NELSON LAGOON; VSS; NSR NOTED ON TELE W/ HR 60'S; PT STATES HE HAS SOME PAIN ASSOCIATED W/ CHEST TUBE; O2 SATS >93 ON RA; ATROVENT TO SUCTION, 15 ML DRAINAGE NOTED THIS SHIFT OF RED SANGUINOUS; CXR THIS AM AT BEDSIDE; UPDATED SPOUSE EARLY PART OF SHIFT; NO DISTRESS NOTED T/O SHIFT; CALL LIGHT IN REACH; BED IN LOWEST POSITION; WILL CONITNUE TO MONITOR CLOSELY UNTIL HAND OFF TO DAY SHIFT RN.
--- NOTE | 2020-03-14 17:58 | NUR ---
SHIFT NOTE PLEURAVAC TO WATER SEAL PER DR FERNANDEZ. 30ML DRAINAGE FROM CHEST TUBE T/O THE DAY. PT A/O X4, ANSWERING QUESTIONS APPROPRIATELY IN FULL SENTECES. PT DENIES SOB, STS THAT HE IS BREATHING BETTER THAN YESTERDAY. SKIN PWD AND INTACT. VSS.
--- NOTE | 2020-03-14 19:40 | NUR ---
ASSUMED CARE RECEIVED BEDSIDE REPORT FROM SANDEEP RN; PT A&O X 4; VSS; O2 SATS >92 ON RA; PT WATCHING TV, DENIES NEEDS; CALL LIGHT IN REACH; BED IN LOWEST POSITION.
--- NOTE | 2020-03-15 06:19 | NUR ---
SHIFT SUMMARY PT A&O X 4; PLEASANT & COMPLIANT W/ CARE; VSS; O2 SATS >93 ON RA; ATROVENT TO WATER SEAL; MINIMAL DRAINAGE; PT SLEPT SEVERAL HOURS IN BETWEEN INTERVENTIONS; NO DISTRESS NOTED; CALL LIGHT IN REACH; BED IN LOWEST POSITION; WILL CONTINUE TO MONITOR CLOSELY UNTIL HAND OFF TO DAY SHIFT RN.
[2020-03-15 08:46] LABS: Anion Gap 7 mmol/L (6-16); Blood Urea Nitrogen 23 mg/dL (8-24); CO2, Blood 27 mmol/L (21-32); Calcium, Blood 8.9 mg/dL (8.5-10.1); Chloride, Blood 107 mmol/L (98-108); Creatinine, Blood 1.15 mg/dL (0.60-1.20); Glomerular Filtration Rate >60 (60-); Glucose, Blood 107 mg/dL (70-99); Sodium, Blood 141 mmol/L (136-145)
--- NOTE | 2020-03-15 10:54 | NUR ---
UPDATE DR. FERNANDEZ AT BEDSIDE TO REMOVE CHEST TUBE. CHEST TUBE REMOVED AND DRESSED WITH GUAZE AND TEGADERM PER DR. FERNANDEZ REQUEST. PT DENIES ANY SOB OR PAIN. PLAN FOR PT TO BE TRANSFERRED TO [facility] FOR VATS. WILL AWAIT TRANSFER ORDERS.
--- NOTE | 2020-03-15 15:08 | NUR ---
TRANSFER/SUMMARY PT ALERT AND ORIENTED. VITAL SIGNS STABLE. ON ROOM AIR SATING ABOVE 92%. TELE SHOWING SINUS RHYTHM. NO ACUTE CHANGES. DENIES SOB AND CHEST PAIN. DR. FERNANDEZ IN TO SEE PATIENT THIS AM, CHEST TUBE REMOVED WITH CHARGE NURSE AT BEDSIDE. PT DENIES ANY PAIN. UP TO BATHROOM. EATING WELL. TRANSFERED AT 1500 BY STRETCHER.
[2020-06-10] MEDS ORDERED: OXYC5 PO (16:36)
[2020-06-15] MEDS ORDERED: MELA3 PO (06:25)
== END 2020-03-15 15:08 | disposition short-term general hospital (02) | DRG 200 ==
LOC: ER 01:24 → MEDS 01:25 → PCU 13:58 → MEDS 13:59 → PCU 14:14
PROVIDERS: Emergency Medicine; Internal Medicine; ADMIT Family Medicine
PROC: 0W9930Z Drainage of Right Pleural Cavity with Drainage Device, Percutaneous Approach (ICD-10-PCS; principal; 2020-03-13)
DX: J95.811 Postprocedural pneumothorax (principal); J94.8 Other specified pleural conditions; I34.0 Nonrheumatic mitral (valve) insufficiency; E78.00 Pure hypercholesterolemia, unspecified; I12.9 Hypertensive chronic kidney disease with stage 1 through stage 4 chronic kidney disease, or unspecified chronic kidney disease; N18.30 Chronic kidney disease, stage 3 unspecified; D63.1 Anemia in chronic kidney disease; Z85.46 Personal history of malignant neoplasm of prostate; I48.0 Paroxysmal atrial fibrillation; Z90.79 Acquired absence of other genital organ(s); Z95.2 Presence of prosthetic heart valve; Z98.52 Vasectomy status; E78.5 Hyperlipidemia, unspecified; E87.6 Hypokalemia
CPT/HCPCS: 32557; 36415; 71045; 71046; 71250; 80048; 80053; 84484; 85025; 93005; 93010; 99285-25; A9270; G0378

== ENCOUNTER 2020-07-25 16:42 | Inpatient (IN) | payer OTHER ==
[~2020-07-25] VITALS: Ht 182.9 cm; Wt 73.2 kg
[~2020-07-25 16:42] MED LIST changes: +LOW DOSE ASPIRI81 M1 PO; +MELA3 PO; +OXYC5 PO
[2020-07-25 17:20] LABS: BASOPHILS ABSOLUTE AUTO 0.05 K/mm3 (0.00-0.23); BASOPHILS PERCENT AUTO 0 % (0-2); EOSINOPHILS ABSOLUTE AUTO 0.04 K/mm3 (0.00-0.68); EOSINOPHILS PERCENT AUTO 0 % (0-6); Hematocrit 38.6 % (37.0-53.0); Hemoglobin 11.7 g/dL (13.5-17.5); IMMATURE GRAN ABSOLUTE AUTO 0.07 K/mm3 (0.00-0.10); IMMATURE GRAN PERCENT AUTO 1 % (0-1); LYMPHOCYTES ABSOLUTE AUTO 1.02 K/mm3 (0.84-5.20); LYMPHOCYTES PERCENT AUTO 8 % (21-46); MONOCYTES ABSOLUTE AUTO 1.39 K/mm3 (0.16-1.47); MONOCYTES PERCENT AUTO 10 % (4-13); Mean Corpuscular HGB 27.3 pg (26.0-34.0); Mean Corpuscular HGB Conc 30.3 g/dL (31.5-36.5); Mean Corpuscular Volume 90 fL (80-100); Mean Platelet Volume 9.9 fL (9.1-12.4); NEUTROPHILS ABSOLUTE AUTO 11.05 K/mm3 (1.96-9.15); NEUTROPHILS PERCENT AUTO 81 % (41-73); Platelet Count 298 K/mm3 (150-400); RDW Coefficient Variation 14.4 % (11.7-14.2); RDW Standard Deviation 47.8 fL (35.1-46.3); Red Blood Cell Count 4.29 M/mm3 (4.30-5.90); White Blood Cell Count 13.62 K/mm3 (4.00-11.30)
[2020-07-25 17:34] LABS: Alanine Aminotransfer (ALT/SGP 31 U/L (12-78); Albumin/Globulin Ratio 0.4 (0.8-1.8); Alk Phos 228 U/L (50-136); Anion Gap 3 mmol/L (6-16); Aspartate Aminotrans (AST/SGOT 33 U/L (12-37); Bilirubin, Total 0.4 mg/dL (0.1-1.0); Blood Urea Nitrogen 36 mg/dL (8-24); CO2, Blood 32 mmol/L (21-32); Chloride, Blood 100 mmol/L (98-108); Creatinine, Blood 1.09 mg/dL (0.60-1.20); Globulin, Blood 5.2 g/dL (2.2-4.0); Glomerular Filtration Rate >60 (60-); Glucose, Blood 124 mg/dL (70-99); Potassium, Blood 5.1 mmol/L (3.5-5.5); Sodium, Blood 135 mmol/L (136-145); Total Protein, Blood 7.2 g/dL (6.4-8.2); Troponin I <0.015 ng/mL (0.000-0.040)
[2020-07-25] MEDS ORDERED: VITAMIN D31000 UNI1 PO (21:29)
--- NOTE | 2020-07-26 | NUR ---
ASSUMED CARE NOTE: ASSUMED CARE OF PT AT 2301. PT IS ALERT AND ORIENTEDX3, ABLE TO COMMUNICATE NEEDS/FOLLOW COMMANDS. POOR HISTORIAN, VERY [place]. PT IS ON 4L OF 02 VIA NC, SpO2 ABOVE 90% SOB WITH ACTIVITY. PT ON TELE MONITOR READING AFIB HR 90'S, NO CP AT THIS TIME. BP STABLE. PT CAN BE INCONT OF URINE, ATTENDS IN PLACE, CAN USE URINAL AT BEDSIDE. PT BEDREST AT THIS TIME. PT VERY WEAK T/O STS HE HAS NOT BEEN MOVING AROUND AT HOME VERY WELL FOR A FEW WEEKS. BOWEL TONES HYPOACTIVE STS HE HAS NOT HAD A BM SINCE 07/21, NON-TENDER ABD. PT URINE IS FRANKIE/CONCENTRATED IN COLOR. PT HAS A PLEURAL DRAIN TO RUQ, ORDERS TO DRAIN 1L OUT EVERY OTHER DAY, LAST DRAIN WAS 07/25/20, NEXT IS SCHEDULED TO BE 07/27/20. DRAIN DRESSING IS C/D/I. WILL CONTINUE TO MONITOR PT T/O SHIFT.
[2020-07-26 00:47] LABS: Adenovirus Not Detected (NOT DETECT); Bordetella pertussis Not Detected (NOT DETECT); Chlamydophila pneumoniae Not Detected (NOT DETECT); Coronavirus 229E Not Detected (NOT DETECT); Coronavirus HKU1 Not Detected (NOT DETECT); Coronavirus NL63 Not Detected (NOT DETECT); Coronavirus OC43 Not Detected (NOT DETECT); Human Metapneumovirus Not Detected (NOT DETECT); Human Rhinovirus/Enterovirus Not Detected (NOT DETECT); Influenza A/2009-H1 Not Detected (NOT DETECT); Influenza A/H1 Not Detected (NOT DETECT); Influenza A/H3 Not Detected (NOT DETECT); Influenza B Not Detected (NOT DETECT); Mycoplasma pneumoniae Not Detected (NOT DETECT); Parainfluenza Virus 1 Not Detected (NOT DETECT); Parainfluenza Virus 2 Not Detected (NOT DETECT); Parainfluenza Virus 3 Not Detected (NOT DETECT); Parainfluenza Virus 4 Not Detected (NOT DETECT); Respiratory Syncytial Virus Not Detected (NOT DETECT); SARS-Cov-2 (COVID-19), BioFire Not Detected (NOT DETECT)
[2020-07-26 03:55] LABS: BASOPHILS ABSOLUTE AUTO 0.06 K/mm3 (0.00-0.23); BASOPHILS PERCENT AUTO 0 % (0-2); EOSINOPHILS ABSOLUTE AUTO 0.04 K/mm3 (0.00-0.68); EOSINOPHILS PERCENT AUTO 0 % (0-6); Hematocrit 37.7 % (37.0-53.0); Hemoglobin 11.5 g/dL (13.5-17.5); IMMATURE GRAN ABSOLUTE AUTO 0.07 K/mm3 (0.00-0.10); IMMATURE GRAN PERCENT AUTO 1 % (0-1); LYMPHOCYTES ABSOLUTE AUTO 0.53 K/mm3 (0.84-5.20); LYMPHOCYTES PERCENT AUTO 4 % (21-46); MONOCYTES ABSOLUTE AUTO 0.74 K/mm3 (0.16-1.47); MONOCYTES PERCENT AUTO 5 % (4-13); Mean Corpuscular HGB 27.2 pg (26.0-34.0); Mean Corpuscular HGB Conc 30.5 g/dL (31.5-36.5); Mean Corpuscular Volume 89 fL (80-100); Mean Platelet Volume 9.6 fL (9.1-12.4); NEUTROPHILS ABSOLUTE AUTO 13.75 K/mm3 (1.96-9.15); NEUTROPHILS PERCENT AUTO 90 % (41-73); Platelet Count 262 K/mm3 (150-400); RDW Coefficient Variation 14.5 % (11.7-14.2); RDW Standard Deviation 46.9 fL (35.1-46.3); Red Blood Cell Count 4.23 M/mm3 (4.30-5.90); White Blood Cell Count 15.19 K/mm3 (4.00-11.30)
[2020-07-26 04:13] LABS: Alanine Aminotransfer (ALT/SGP 25 U/L (12-78); Albumin, Blood 1.9 g/dL (3.4-5.0); Albumin/Globulin Ratio 0.4 (0.8-1.8); Alk Phos 200 U/L (50-136); Anion Gap 5 mmol/L (6-16); Aspartate Aminotrans (AST/SGOT 21 U/L (12-37); Bilirubin, Total 0.4 mg/dL (0.1-1.0); Blood Urea Nitrogen 36 mg/dL (8-24); Bun/Creatinine Ratio 34.3 (12.0-20.0); CO2, Blood 31 mmol/L (21-32); Calcium, Blood 8.4 mg/dL (8.5-10.1); Chloride, Blood 97 mmol/L (98-108); Creatinine, Blood 1.05 mg/dL (0.60-1.20); Globulin, Blood 4.6 g/dL (2.2-4.0); Glomerular Filtration Rate >60 (60-); Glucose, Blood 104 mg/dL (70-99); Potassium, Blood 4.8 mmol/L (3.5-5.5); Sodium, Blood 133 mmol/L (136-145); Total Protein, Blood 6.5 g/dL (6.4-8.2)
--- NOTE | 2020-07-26 06:02 | NUR ---
SHIFT SUMMARY: SEE PREVIOUS NOTES. PT CONTINUES TO BE ALERT/ORIENTEDX3, ABLE TO COMMUNICATE NEEDS. PT ON 4L OF VIA NC, SPO2 REAMAINING ABOVE 90% PT IN AFIB WITH HR BETWEEN 80-110, BP STABLE. PT HAS DENIED ANY PAIN T/O SHFIT. PT HAS BEEN USING URINAL AT BEDSIDE IND. PT PLEURAL DRAIN DRESSING C/D/I, SEE NURSE NOTIFY REGARDING DRAIN. PT REPOSITONED Q2HR TO PREVENT SKIN BREAKDOWN. WILL CONTINUE TO MONITOR PT UNTIL REPORT IS GIVEN TO ONCOMING SHIFT. BED AT LOWEST LEVEL, CALL LIGHT WITHIN REACH.
--- NOTE | 2020-07-26 10:48 | NUR ---
PT ALERT AND ORIENTED X4. VERY HARD OF HEARING. ON 5 L O2 THIS AM SATING AT 93-94% AT REST. NORMALLY ON 4 L O2 AT HOME. WHEN TALKING PATIENT DESATS TO 88-89% BUT ABLE TO RECOVER WITH REST. TELE SHOWING AFIB WITH HR AVERAGING 108. DENIES CHEST PAIN/PRESSURE. VITAL SIGNS STABLE. MEDIPORT TO RIGHT UPPER CHEST. LAST CHEMO 2 WEEKS AGO AND PER PATIENT HIS NEXT TREATMENT IS THIS COMING MONDAY. RIGHT UPPER QUADRENT PLEURX DRAIN. PER PATIENT HE DRAINED 1 L YESTERDAY. WILL BE DRAINED TOMORROW. DENIES PAIN WITH DRAIN. LUNGS SOUNDING CRACKLES/DIMINISHED BILATERAL BASES. USING URINAL INDEP IN BED. CONTINUOUS BIOX IN PLACE. ABLE TO EAT A GOOD BREAKFAST. MEDS ONE AT A TIME WITH WATER. WILL CONTINUE TO MONITOR.
--- NOTE | 2020-07-26 12:08 | NUR ---
pt eating with difficulty. Very poor appetiete and some dyspnea. Pt main complaint is constiaption very mild queasisness with food. Tracking conversation for pt was difficult he states his son is comin today will meet with him and follow up with oncoloy on plan of care and prognosis.
--- NOTE | 2020-07-26 15:11 | NUR ---
review of pateint with doctor Shane. He had a family discussion. Will follow up with patient and get polst completed.
--- NOTE | 2020-07-26 18:08 | NUR ---
DR. BUSTILLO IN TO SEE PATIENT, SON AT BEDSIDE. DISCUSSION ABOUT PLAN OF CARE AND WHETHER OR NOT PT SHOULD CONTINUE TREATMENT. FAMILY MEETING WITH PALLIATIVE CARE. DECISION TO MOVE FORWARD WITH COMFORT CARE AND HOPSICE AT THIS TIME. COMFORT MEASURE INITIATED. EDUCATION PROVIDED TO PT AND FAMILY. MIA STERLING AT BEDSIDE. WILL CONTINUE TO MONITOR AND REPORT OFF TO ONCOMING RN.
--- NOTE | 2020-07-26 18:39 | NUR ---
Called to meet with patient and son. We reviewed prognosis, hospice care and quality of life. Pt admits he has been struggling more with air hunger. The plan is transition to hospice care. Review with pt and son what s availble and symptom management. They feel the can manage at home. Advised them the hospice staff will review their home needs. Pt struggling with food we review stratgies of comfort and pleasure. Will notify hospice team of chronic constiation.
--- NOTE | 2020-07-26 19:25 | NUR ---
ASSUMED CARE OF PT, HE IS RESTING QUIETLY RECLINING IN BED. STATES THAT "SHE GAVE ME SOMETHING IN A TUBE" FOR AIR HUNGER AND THAT THIS IS HELPING QUITE A LOT AT THIS TIME. HE DENIES NEEDS AT THIS TIME.
--- NOTE | 2020-07-26 21:00 | NUR ---
PT CONTINUES TO DENY NEEDS, STATES THAT HE IS COMFORTABLE IN CURRENT POSITION. HE STATES THAT HE IS HOPING TO GET SOME SLEEP TONIGHT. DECLINES STOOL SOFTENERS RELATED TO HAVING A VERY SOFT BM THIS AM.
--- NOTE | 2020-07-27 05:45 | NUR ---
PT CONTINUES COMFORT CARE STATUS, DENIES NEEDS WITH ROUNDS. PT IS ABLE TO REPOSITION SELF WHICH IS NOTED AT TIMES THIS RN HAS ATTEMPTED TO REPOSITION PT WITH CONCERN FOR PRESSURE RELATED INJURY HOWEVER PT RETURNS HIMSELF TO POSITION OF COMFORT PRIOR TO THIS RN LEAVING ROOM.
--- NOTE | 2020-07-27 07:00 | NUR ---
PATIENT WAS REPOSITIONED AFTER BSR. PATIENT DENIES OTHER NEEDS AT THIS TIME. CALL LIGHT IN REACH, WILL CONTINUE TO MONITOR.
--- NOTE | 2020-07-27 10:11 | NUR ---
VSS. PATIENT WAS RESTING COMFORTABLY WITH EYES CLOSED, EASILY AWAKENS WITH VERBAL STIMULI. PATIENT IS VERY [place] AND DYSPNEC. PATIETN IS ONLY ABLE TO GET A COUPLE OF WORDS OUT AT A TIME. AM MEDS GIVEN. PATIENT BRUSHED HIS TEETH. PATIENT REPOSOTIONED AGAIN AND ATTENDS CHANGED. PATIENT DENIES OTHER NEEDS AT THIS TIME. PATIENT PRE MEDICATED FOR PAIN PER REQUEST FOR PLEUREX DRAIN AROUND 11 OR 11:30. CALL LIGHT IN REACH. WILL CONTINUE TO MONITOR.
--- NOTE | 2020-07-27 13:00 | NUR ---
PATIENT RESTING COMFORTABLY WITH EYES CLOSED RESP E/U. THIS RN WAS ABLE TO TITRATE OXYGEN DOWN TO 4L VIA NC, BIOX 90-95%. PLEUREX DRAINED, 800CC LIGHT RED/ORANGE FLUID. PATIENT TOLERATED WE. XARELTO STARTED PER DR. BUSTILLO RECOMMENDATION. PATIENT DENIES NEEDS AT THIS TIME, CALL LIGHT IN REACH, WILL CONTINUE TO MONITOR.
--- NOTE | 2020-07-27 13:58 | NUR ---
Pt resting in bed upon arrival. Pt denies pain at this time. Pt appears mildly dyspneic as evidenced by Pt speaking in short 1 to 2 word sentences. Encouraged Pt to discuss concerns and fears. Pt reports being at peace with his decision. Continued therapeutic listening. Pt expresses appreciation of visit. Spoke with Primary RN Shayla prior to Pt visit and discussed case. Palliative Care will remain available.
--- NOTE | 2020-07-27 15:16 | NUR ---
SON AT BEDSIDE DISCUSSED PLAN FOR DC HOME ON HOSPICE TOMORROW. SON STATES THIS IS THE PLAN, THE BED WILL BE DELIVERED IN THE MORNING SON REQUEESTED BSC, CARE MANAGEMENT NOTIFIED. PATIENT IS RESTING COMFORTABLY. NADN AT THIS TIME. CALL LIGHT IN REACH. WILL CONTINUE TO MONITOR.
--- NOTE | 2020-07-27 17:01 | NUR ---
CC ASSESSMENT: PT IN NO APPARENT DISTRESS. NO DYSPNEA/SOB/SECRETIONS. NO FAMILY PRESENT. WCTM.
[2020-07-27 17:04] LABS: International Normalized Ratio 0.97; Prothrombin Time Results 10.5 Sec (9.7-11.5)
--- NOTE | 2020-07-27 18:45 | NUR ---
SHIFT SUMMARY: PATIENT XFR FROM PCU-06 THIS SHIFT. PT A&O; VERY [place]; CALM AND COOPERATIVE WITH CARE. COMFORT CARE MEASURES CONTINUING. O2 @ 4L; 4L @ HOME. EXPECTED THORACENTESIS @ 1000 MONDAY; HOME c HOSPICE @ 1100. WCTM.
--- NOTE | 2020-07-28 04:32 | NUR ---
SHIFT SUMMARY A/O 2-3, COOPERATIVE WITH CARE AND ABLE TO MAKE NEEDS KNOWN. DENIES PAIN OR SOB AT THIS TIME. PLEURX DRAIN TO R. SIDE, DRESSING C/D/I. BED IN LOWEST POSITION WITH CALL LIGHT IN REACH. WILL CONTINUE TO MONITOR AND REPORT TO ONCOMING RN.
--- NOTE | 2020-07-28 10:21 | NUR ---
CC ASSESSMENT: PT IN NO APPARENT DISTRESS / NO C/O PAIN. NO DYSPNEA/SOB/SECRETIONS. O2 @ 4L VIA NC. NO FAMILY PRESENT. WCTM.
--- NOTE | 2020-07-28 10:22 | NUR ---
CC ASSESSMENT: PT IN NO APPARENT DISTRESS / NO C/O PAIN. NO DYSPNEA/SOB/SECRETIONS. NO FAMILY PRESENT. WCTM.
[2020-07-28] MEDS ORDERED: Acetaminophen325 M1 PO (11:17)
[2020-07-28] MEDS ORDERED: SENNA LAXATIVE8.6 MG PO (11:18)
[2020-07-28] MEDS ORDERED: MIRALAX17 GM PO (11:18)
[2020-07-28] MEDS ORDERED: XARELTO15 MG PO (11:18)
[2020-07-28] MEDS ORDERED: DOCU100 PO (11:18)
--- NOTE | 2020-07-28 11:32 | NUR ---
CC ASSESSMENT: PT IN NO APPARENT DISTRESS; NO C/O PAIN. NO DYSPNEA/SOB/SECRETIONS. AWAITING TRANSPORT HOME c HOSPICE. NO FAMILY PRESENT. WCTM.
--- NOTE | 2020-07-28 11:49 | NUR ---
PATIENT DISCHARGE: PATIENT DISCHARGED HOME WITH HOSPICE THIS SHIFT. MEDICATION RECONCILIATION COMPLETED; MED LIST FAXED TO [facility]. DISCHARGE EDUCATION PROVIDED IN DISCHARGE PACKET. PATIENT TRANSPORTED TO EXIT BY AMBULANCE CREW WITH [facility] AT 1147. PATIENT DEPARTED [facility] VIA AMBULANCE.
== END 2020-07-28 11:48 | disposition hospice, home (50) | DRG 180 ==
LOC: ER 16:42 → PCU 21:58 → MEDS 07-27 16:25
PROVIDERS: Emergency Medicine; Internal Medicine; Nurse Practitioner Acute Care; ADMIT Internal Medicine
PROC: 0W9B3ZZ Drainage of Left Pleural Cavity, Percutaneous Approach (ICD-10-PCS; principal; 2020-07-28)
DX: C78.00 Secondary malignant neoplasm of unspecified lung (principal); I26.99 Other pulmonary embolism without acute cor pulmonale; J96.21 Acute and chronic respiratory failure with hypoxia; C45.0 Mesothelioma of pleura; J91.0 Malignant pleural effusion; C78.7 Secondary malignant neoplasm of liver and intrahepatic bile duct; I42.8 Other cardiomyopathies; Z20.822 Contact with and (suspected) exposure to COVID-19; Z66 Do not resuscitate; Z51.5 Encounter for palliative care; I34.0 Nonrheumatic mitral (valve) insufficiency; I25.10 Atherosclerotic heart disease of native coronary artery without angina pectoris; K44.9 Diaphragmatic hernia without obstruction or gangrene; I27.22 Pulmonary hypertension due to left heart disease; H91.90 Unspecified hearing loss, unspecified ear; N18.30 Chronic kidney disease, stage 3 unspecified; I12.9 Hypertensive chronic kidney disease with stage 1 through stage 4 chronic kidney disease, or unspecified chronic kidney disease; K59.03 Drug induced constipation; T40.2X5A Adverse effect of other opioids, initial encounter; I48.0 Paroxysmal atrial fibrillation; Z85.46 Personal history of malignant neoplasm of prostate; Z90.79 Acquired absence of other genital organ(s); Z90.89 Acquired absence of other organs; Z95.2 Presence of prosthetic heart valve; Z98.52 Vasectomy status; Z79.899 Other long term (current) drug therapy; Z98.890 Other specified postprocedural states; Z92.21 Personal history of antineoplastic chemotherapy
CPT/HCPCS: 0202U; 32555; 36415; 71045; 71260; 80053; 83880; 84145; 84484; 85025; 85379; 85610; 85730; 93005; 93010; 99285-25; A9270; J0696; J1650; J7050; Q9967